=== PATIENT | female | born 1985 | race Caucasian/White ===

== ENCOUNTER → 2018-01-03 15:26 | Outpatient (CLI) | payer OTHER, SELFPAY | DX: Z23 Encounter for immunization (principal) | CPT/HCPCS: 90471; 90686 ==

== ENCOUNTER → 2018-01-22 09:46 | Outpatient (CLI) | payer OTHER, SELFPAY | PROVIDERS: Visit Provider Physician Assistant | DX: J02.9 Acute pharyngitis, unspecified (principal) | CPT/HCPCS: 87070 ==

== ENCOUNTER 2018-04-15 18:25 | Emergency (ER) | payer OTHER, SELFPAY ==
--- NOTE | 2018-04-15 19:05 | DI.RAD.S_ITS ---
PROCEDURE: XR ANKLE RT MIN 3V INDICATIONS: tripped and fell TECHNIQUE: 3 views of the ankle were acquired. COMPARISON: None. FINDINGS: Bones: No fractures or dislocations. Ankle mortise is normally aligned. No suspicious bony lesions. Soft tissues: Small tibiotalar joint effusion. Achilles tendon appears normal. Mild soft tissue swelling over to lateral malleolus. IMPRESSION: No fracture or dislocation. There is a small tibiotalar joint effusion and mild soft tissue swelling over to lateral malleolus. If clinical symptoms persist or clinical suspicion for pathology is high, a repeat examination in 7-10 days, or advanced imaging such as CT or MRI is suggested for further evaluation. Dictated by: Ervin Olivo M.D. on 04/15/2018 at 19:48 Approved by: Ervin Olivo M.D. on 04/15/2018 at 19:50
[2018-04-15 19:06] VITALS: BP 105/71; PULSE 87; RESP 18; TEMP 37.3; O2SAT 100; BMI 27.4
--- NOTE | 2018-04-15 20:49 | ED.LOWEXIN ---
HPI - Extremity Injury (Lower) General Chief Complaint: Extremity Injury, Lower Stated Complaint: FALL RIGHT ABNKLE INJURY SWELLING Time Seen by Provider: 04/15/18 20:44 Source: patient Mode of arrival: wheelchair Limitations: no limitations History of Present Illness HPI Narrative: Patient is a 32-year-old female who presents with right ankle pain. She tripped over the cement. She was able to toe-touch but not able to completely weight bear. She has significant swelling no numbness or tingling. She was unable to push down on the gas pedal earlier. Related Data Home Medications Medication Instructions Recorded Confirmed No Known Home Medications 01/22/18 01/22/18 Allergies Allergy/AdvReac Type Severity Reaction Status Date / Time No Known Drug Allergies Allergy Verified 04/15/18 19:10 Review of Systems Review of Systems GENERAL: Denies chills,fever HEENT: Denies throat pain RESPIRATORY: Denies dyspnea, cough, wheezing CARDIOVASCULAR: Denies chest pain, palpitations GASTROINTESTINAL: Denies nausea, vomiting MUSCULOSKELETAL: right ankle pain see HPI SKIN: No rash, no laceration, no pruritus NEUROLOGIC: Denies weakness, dizziness, headache, numbness 8 point review of systems is negative except for those stated above and HPI PFSH Medical History Patient denies significant medical history (Acute) Social History Smoking Status: Former smoker Social History Smoking Status: Former smoker Exam Initial Vital Signs Initial Vital Signs: Vital Signs Temperature 99.2 F 04/15/18 19:06 Pulse Rate 87 04/15/18 19:06 Respiratory Rate 18 04/15/18 19:06 Blood Pressure 105/71 04/15/18 19:06 Pulse Oximetry 100 04/15/18 19:06 GENERAL: Well-appearing, well-nourished and in no acute distress. CARDIOVASCULAR: peripheral pulses in tact, cap refill <2 sec RESPIRATORY: No respiratory distress, speaks in full sentences without difficulty EXTREMITIES: Normal range of motion, no clubbing or edema. Neurovascularly intact right ankle: Significant lateral swelling able to plantar and dorsiflex distal pedal pulse intact. Achilles intact. NEUROLOGICAL: Cranial nerves II through XII grossly intact. Normal gait and speech. SKIN: Warm, dry, no petechiae, no rashes or lesions. Course Orders Ordered: ED Orders 04/15/18 19:05 XR ankle RT min 3V Stat Discontinued Medications Ibuprofen (Advil) 800 mg PO NOW ONE Stop: 04/15/18 20:48 Last Admin: 04/15/18 20:57 Dose: 800 mg Vital Signs - 8 hr 04/15/18 19:06 04/15/18 21:00 04/15/18 21:01 Temperature 99.2 F Pulse Rate 87 86 Pulse Rate [Right Dorsalis Pedis] 70 Respiratory Rate 18 18 Blood Pressure 105/71 Blood Pressure [Left Arm] 117/87 Pulse Oximetry 100 96 MDM - Extremity Injury (Lower) Imaging Data Right ankle x-ray: Radiologist's impression: PROCEDURE: XR ANKLE RT MIN 3V INDICATIONS: tripped and fell TECHNIQUE: 3 views of the ankle were acquired. COMPARISON: None. FINDINGS: Bones: No fractures or dislocations. Ankle mortise is normally aligned. No suspicious bony lesions. Soft tissues: Small tibiotalar joint effusion. Achilles tendon appears normal. Mild soft tissue swelling over to lateral malleolus. IMPRESSION: No fracture or dislocation. There is a small tibiotalar joint effusion and mild soft tissue swelling over to lateral malleolus. If clinical symptoms persist or clinical suspicion for pathology is high, a repeat examination in 7-10 days, or advanced imaging such as CT or MRI is suggested for further evaluation. Discharge Plan Departure Patient Disposition: Home Clinical Impression: Right ankle sprain Qualifiers: Encounter type: initial encounter Involved ligament of ankle: tibiofibular ligament Qualified Code(s): S93.431A - Sprain of tibiofibular ligament of right ankle, initial encounter Discharge Date/Time: 04/15/18 21:36 Interventions: ED Discharge Assessment Last Done: 04/15/18 21:35 Instructions: Ankle Sprain Activity Restrictions/Additional Instructions: *You have been diagnosed with right ankle sprain *What to do: compression, elevate, ice, increased movement as tolerated use crutches as needed. If still having pain in 7-10 days may require repeat x-ray and possibly MRI all as outpatient. please speak with her primary care provider about *Continue to take medications as directed Motrin 800 mg every 8 hr with food for 1 week if needed for pain *Follow up with your primary care provider in 2-3 days *Return to ER if you should have increasing pain, numbness, tingling or any new, worsening or concerning symptoms Prescriptions: No Action No Known Home Medications RF: 0 Stand Alone Forms: Work Release Note
[2018-04-15] MEDS: IBUPROFEN 400 MG TABLET 800 MG PO (20:57)
[2018-04-15 21:00] VITALS: PULSE 70
[2018-04-15 21:01] VITALS: BP 117/87; PULSE 86; RESP 18; O2SAT 96
--- NOTE | 2018-04-15 21:34 | PC.NURSE ---
CSM intact post marina wrap application
== END 2018-04-15 21:36 | disposition home or self-care (01) ==
PROVIDERS: Emergency Provider Emergency Medicine
DX: S93.431A Sprain of tibiofibular ligament of right ankle, initial encounter (principal); W01.0XXA Fall on same level from slipping, tripping and stumbling without subsequent striking against object, initial encounter
CPT/HCPCS: 73610; 99282; 99283

== ENCOUNTER → 2018-12-03 13:26 | Outpatient (CLI) | payer OTHER, SELFPAY | DX: Z23 Encounter for immunization (principal) | CPT/HCPCS: 90471; 90686 ==

== ENCOUNTER 2019-02-21 13:14 | Emergency (ER) | payer OTHER, SELFPAY ==
[2019-02-21 13:48] VITALS: BP 126/81; PULSE 76; RESP 15; TEMP 36.6; O2SAT 100; BMI 29.9
[2019-02-21 14:28] LABS: Influenza A - CEPHEID Flu A NEGATIVE (NEGATIVE); Influenza B - CEPHEID Flu B NEGATIVE (NEGATIVE)
[2019-02-21] MEDS: KETOROLAC 60 MG/2 ML VIAL IM (17:02)
[2019-02-21 17:58] VITALS: PULSE 76; TEMP 36.9; O2SAT 98
--- NOTE | 2019-02-21 18:48 | ED.URI ---
HPI - URI/Sore Throat <HAWA Mahoney - Last Filed: 02/21/19 18:51> General Chief Complaint: Upper Respiratory Symptoms Stated Complaint: sore throat, achey chest Time Seen by Provider: 02/21/19 16:05 Source: patient Mode of arrival: Ambulatory Limitations: no limitations History of Present Illness HPI Narrative: The patient is a 33-year-old female former smoker who presents with a chief complaint of sore throat, and possible chest congestion/early bronchitis. She states she woke up with these symptoms today. Denies any fevers nausea vomiting diarrhea. Denies any cough. Has not taken anything to feel better. Related Data Home Medications Medication Instructions Recorded Confirmed No Known Home Medications 01/22/18 01/22/18 Previous Rx's Medication Instructions Recorded ketorolac 10 mg PO TID PRN #14 tab 02/21/19 Allergies Allergy/AdvReac Type Severity Reaction Status Date / Time No Known Drug Allergies Allergy Verified 02/21/19 13:48 Review of Systems <HAWA Mahoney - Last Filed: 02/21/19 18:51> Review of Systems Narrative: GENERAL: Denies chills, fatigue, malaise, fever, sweats. HEENT: See HPI RESPIRATORY: Denies dyspnea, cough, wheezing, hemoptysis, sputum. CARDIOVASCULAR: Denies chest pain, palpitations, orthopnea, edema, GASTROINTESTINAL: Denies nausea, vomiting, abdominal pain, diarrhea, constipation, melena. : Denies dysuria, frequency, incontinence, hematuria, urinary retention. MUSCULOSKELETAL: denies weakness, joint pain, or bony pain SKIN: Denies rash, skin lesions, or other NEUROLOGIC: Denies weakness, headache, numbness, change in speech, confusion, seizures, incoordination. PSYCHIATRIC: No concerning psychosocial issues. 12 point review of systems is negative except for those stated above Patient History <HAWA Mahoney - Last Filed: 02/21/19 18:51> Medical History Patient denies significant medical history (Acute) Social History Smoking Status: Former smoker Smoking Status: Former smoker alcohol intake frequency: 0-2 drinks per day Substance Use Type: does not use Exam <HAWA Mahoney - Last Filed: 02/21/19 18:51> Narrative Exam Narrative: GENERAL: This is a well-nourished, well-developed patient, in no acute distress HEAD: Atraumatic. Normocephalic. No temporal or scalp tenderness. EYES: Pupils equal round and reactive. Extraocular motions intact. No scleral icterus. No injection or drainage. ENT: Nose without bleeding, purulent drainage or septal hematoma. Throat without erythema, tonsillar hypertrophy or exudate. Uvula midline. Airway patent. Bilateral TMs pearly parkinson NECK: Trachea midline. No JVD or lymphadenopathy. Supple, nontender, no meningeal signs. CARDIOVASCULAR: Regular rate and rhythm without murmurs, gallops, or rubs. RESPIRATORY: Clear to auscultation. Breath sounds equal bilaterally. No wheezes, rales, or rhonchi. No cough. No increased respiratory effort. No accessory muscle use. GASTROINTESTINAL: Abdomen soft, non-tender, nondistended. No hepato-splenomegaly, or palpable masses. No guarding. EXTREMITIES: No clubbing, cyanosis, or edema. No joint tenderness, effusion, or edema noted. BACK: Nontender without deformity or crepitance. No flank tenderness. NEURO: AOx3. SKIN: No rash or erythema. Initial Vital Signs Initial Vital Signs: Vital Signs Temperature 97.8 F 02/21/19 13:48 Pulse Rate 76 02/21/19 13:48 Respiratory Rate 15 02/21/19 13:48 Blood Pressure 126/81 02/21/19 13:48 Pulse Oximetry 100 02/21/19 13:48 <Sabrina Long DO - Last Filed: 02/24/19 08:13> Initial Vital Signs Initial Vital Signs: Vital Signs Temperature 97.8 F 02/21/19 13:48 Pulse Rate 76 02/21/19 13:48 Respiratory Rate 15 02/21/19 13:48 Blood Pressure 126/81 02/21/19 13:48 Pulse Oximetry 100 02/21/19 13:48 Course <HAWA Mahoney - Last Filed: 02/21/19 18:51> Orders Ordered: Discontinued Medications Ketorolac Tromethamine (Toradol) 60 mg IM NOW ONE Stop: 02/21/19 16:37 Last Admin: 02/21/19 17:02 Dose: 60 mg Documented by: ADRIANE Vital Signs Vital signs: Vital Signs - 8 hr 02/21/19 13:48 02/21/19 17:58 Temperature 97.8 F 98.5 F Pulse Rate 76 76 Respiratory Rate 15 Blood Pressure 126/81 Pulse Oximetry 100 98 <Sabrina Long DO - Last Filed: 02/24/19 08:13> Orders Ordered: Discontinued Medications Ketorolac Tromethamine (Toradol) 60 mg IM NOW ONE Stop: 02/21/19 16:37 Last Admin: 02/21/19 17:02 Dose: 60 mg Documented by: ADRIANE Vital Signs Vital signs: Vital Signs - 8 hr 02/21/19 13:48 02/21/19 17:58 Temperature 97.8 F 98.5 F Pulse Rate 76 76 Respiratory Rate 15 Blood Pressure 126/81 Pulse Oximetry 100 98 MDM - URI/Sore Throat <HAWA Mahoney - Last Filed: 02/21/19 18:51> Lab Data Labs: Lab Results 02/21/19 Range/Units 13:51 Influenza A (RT-PCR) Flu a negative (NEGATIVE) Influenza B (RT-PCR) Flu b negative (NEGATIVE) Point of Care Testing Rapid Strep A Negative MDM Narrative Medical decision making narrative: The patient is a 33-year-old female who presents with a chief complaint of sore throat, chest congestion. She tested negative for the flu. She test negative strep. She has no signs of systemic illness. Throat culture was obtained. She felt much improved after Toradol. I discussed a prescription of Toradol, discussed not combining with any other NSAIDs. Encouraged owye-imi-eeefycl measures such as Flonase, Neti pot, Sudafed etcetera. Encourage PCP follow-up in the next few days. Patient has no questions or concerns upon discharge and states understanding of return precautions of any acute concerns as well as follow-up care. <Sabrina Long DO - Last Filed: 02/24/19 08:13> Lab Data Labs: Lab Results 02/21/19 Range/Units 13:51 Influenza A (RT-PCR) Flu a negative (NEGATIVE) Influenza B (RT-PCR) Flu b negative (NEGATIVE) Point of Care Testing Rapid Strep A Negative Discharge Plan Departure Patient Disposition: Home Clinical Impression: Pharyngitis Qualifiers: Pharyngitis/tonsillitis etiology: unspecified etiology Qualified Code(s): J02.9 - Acute pharyngitis, unspecified Discharge Date/Time: 02/21/19 17:59 Instructions: DI for Viral Pharyngitis Activity Restrictions/Additional Instructions: Your rapid strep came back negative. There is a throat culture pending at this time. I suggest eijf-bwl-[id number] remedies such as Flonase, Neti pot, Sudafed, oehs-iva-ddqfdjy measures as needed and able for your congestion and symptoms. [facility] [place] I have given you a prescription of Toradol. This is an NSAID. Do not combine it with other NSAIDs such as Aleve or ibuprofen. I suggest taking it with some food, as it can irritate your stomach. Please follow-up with primary care provider in the next few days Please come back to the emergency department for any acute concerns Prescriptions: New ketorolac 10 mg tablet 10 mg PO TID PRN (Reason: pain) Qty: 14 RF: 0 No Action No Known Home Medications RF: 0 Referrals: [facility] [Provider Group] Stand Alone Forms: Work Release Note, Work/School Release
== END 2019-02-21 17:59 | disposition home or self-care (01) ==
PROVIDERS: Emergency Medicine; Emergency Provider Nurse Practitioner Family
DX: J02.9 Acute pharyngitis, unspecified (principal); Z87.891 Personal history of nicotine dependence
CPT/HCPCS: 87070; 87502; 87880; 96372; 99281; 99283; J1885